=== PATIENT | male | born 1995 | race Caucasian/White ===

== ENCOUNTER 2017-07-30 23:57 | Emergency (ER) | payer OTHER ==
[~2017-07-30] VITALS: Ht 177.8 cm; Wt 82.0 kg
[2017-07-31 00:05] VITALS: TEMP 36.7; Ht 177.8 cm; Wt 82.0 kg
[2017-07-31 00:47] VITALS: BP 143/90; PULSE 90; O2SAT 99
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
== END 2017-07-31 01:30 | disposition home or self-care (01) ==
LOC: EDBD 23:57 → C.EDB 23:59
DX: S00.83XA Contusion of other part of head, initial encounter (principal); S16.1XXA Strain of muscle, fascia and tendon at neck level, initial encounter; Y04.0XXA Assault by unarmed brawl or fight, initial encounter; Y92.89 Other specified places as the place of occurrence of the external cause